=== PATIENT | male | born 1985 | race Caucasian/White ===

== ENCOUNTER 2024-11-10 04:52 | Emergency (ER) | payer OTHER, SELFPAY ==
[2024-11-10 05:02] VITALS: BP 139/87; PULSE 68; TEMP 36.7; O2SAT 98; BMI 25.1
--- NOTE | 2024-11-10 05:16 | ED.LOWEXI1 ---
HPI HPI - Extremity Injury (Lower) General Chief Complaint: Extremity Injury, Lower Stated Complaint: LOWER EXTREMITY PAIN Time Seen by Provider: 11/10/24 05:11 Source: patient Mode of arrival: walk-in Limitations: no limitations History of Present Illness HPI Narrative: pain of right foot for past 5 days. had to catch himself coming down off a ladder and injured the foot. Mild discomfort initially. Next day pain at the instep of the foot and he was walking on the ball of the foot. Is suppose to return to work today but continues to have pain and came to the ER. Denies other injury. no numbness or weakness of the foot. no fever or chills Related Data Home Medications ?Medication ?Instructions ?Recorded ?Confirmed No Known Home Medications 11/10/24 11/10/24 Allergies Allergy/AdvReac Type Severity Reaction Status Date / Time No Known Drug Allergies Allergy Verified 11/10/24 05:01 Opioid HPI Opioid Management Most Recent Pain and Opioid Data: Last Pain Scale 7 11/10/24, 05:02 Review of Systems ROS Status of ROS 10 or more systems reviewed and unremarkable except as noted in history and below PFSH PFSH Social History Little interest or pleasure in doing things: not at all Feeling down, depressed, or hopeless: not at all Exam Constitutional Vital Signs, click to edit/add: Last Vital Signs Temp 98.1 F 11/10/24 05:02 Pulse 68 11/10/24 05:02 Resp 18 11/10/24 05:02 BP 139/87 11/10/24 05:02 Pulse Ox 98 11/10/24 05:02 O2 Del Method Room Air 11/10/24 05:02 Common normals: no apparent distress, average body habitus, oriented x3, no limitations, healthy appearing, alert and well nourished [facility] Common normals: normocephalic and head/scalp atraumatic Eye Common normals: EOMs intact bilaterally Respiratory Common normals: normal respiratory effort, no retractions, no use of accessory muscles and clear to auscultation bilaterally Cardio Common normals: regular rate, regular rhythm, S1 normal heart sound and S2 normal heart sound Extremity Other: normal inspection right foot . focal tenderness instep right foot. No fullness or obvious swelling Neuro Common normals: oriented x3, CN's II-XII intact bilaterally and moves all extremities Psych Appearance: grossly normal Course Vital Signs Vital signs: Vital Signs Temperature 98.1 F 11/10/24 05:02 Pulse Rate 68 11/10/24 05:02 Respiratory Rate 18 11/10/24 05:02 Blood Pressure 139/87 11/10/24 05:02 Pulse Oximetry 98 11/10/24 05:02 Oxygen Delivery Method Room Air 11/10/24 05:02 Temperature 98.1 F 11/10/24 05:02 Pulse Rate 68 11/10/24 05:02 Respiratory Rate 18 11/10/24 05:02 Blood Pressure 139/87 11/10/24 05:02 Pulse Oximetry 98 11/10/24 05:02 Oxygen Delivery Method Room Air 11/10/24 05:02 MDM - Extremity Injury (Lower) MDM Narrative Medical decision making narrative: presents with right foot pain ongoing for past 4-5 days. tender instep. no swelling . xray neg. Patient strained his foot based on the history he provided. Will have him follow up with podiatry Discharge Plan Discharge Chief Complaint: Extremity Injury, Lower Clinical Impression: Right foot strain Patient Disposition: Home, Self-Care Prescriptions / Home Meds: No Action No Known Home Medications Print Language: Romansh Instructions: Arthralgia (ED) Additional Instructions: follow up with podiatry Referrals: Physician,Non-Staff, MD [Primary Care Provider] - 1 week Discharge Date/Time: 11/10/24 06:49
== END 2024-11-10 06:49 | disposition home or self-care (01) ==
PROVIDERS: Emergency Provider Internal Medicine
DX: S96.811A Strain of other specified muscles and tendons at ankle and foot level, right foot, initial encounter (principal); M79.671 Pain in right foot; M77.31 Calcaneal spur, right foot
CPT/HCPCS: 73630; 99283

== ENCOUNTER 2024-12-30 10:00 | Emergency (ER) | payer OTHER, SELFPAY ==
[2024-12-30 10:06] VITALS: BP 135/99; PULSE 68; TEMP 37.1; O2SAT 100; BMI 23.7
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
--- NOTE | 2024-12-30 10:34 | ED.ABDPAIN1 ---
HPI - Abdominal Pain General Chief Complaint: Abdominal Pain Stated Complaint: ABDOMINAL PAIN, CONSTIPATION, Time Seen by Provider: 12/30/24 10:33 Source: patient Mode of arrival: walk-in Limitations: no limitations History of Present Illness HPI narrative: The patient comes to the ER after he missed work yesterday because he was having constipation and started having diarrhea today after taking laxative, patient have no abdominal pain no nausea no vomiting He mentioned that he has been managing constipation for the last few years and he denies any alarming symptoms or any abdominal pain nausea vomiting at any time but he had to take laxative every few days to help him go to the bathroom better The patient have no acute complaints Related Data Home Medications ?Medication ?Instructions ?Recorded ?Confirmed No Known Home Medications 11/10/24 12/30/24 Allergies Allergy/AdvReac Type Severity Reaction Status Date / Time No Known Drug Allergies Allergy Verified 12/30/24 10:06 Review of Systems ROS Status of ROS 10 or more systems reviewed and unremarkable except as noted in history and below PFSH PFSH Social History Little interest or pleasure in doing things: not at all Feeling down, depressed, or hopeless: not at all Exam Narrative Exam Narrative: Nurses notes and vital signs reviewed and patient is not hypoxic. General: Well-appearing and in no apparent distress. Skin: Warm, dry, no pallor noted. No rash. Head: Normocephalic, atraumatic. Neck: Supple, non-tender. Cardiovascular: Regular Rate and Rhythm without murmur, gallop or rub. Respiratory: No accessory muscle use or respiratory distress. Lungs are clear to auscultation, no wheezing, rales or rhonchi GI: Abdomen is soft, non-distended. Normal bowel sounds. No masses appreciated. No tenderness to palpation. No rebound, guarding, or rigidity noted. Neurological: A&O x4. No cranial nerve dysfunction observed. No truncal ataxia. Moves all extremities. Sensation intact. Psychiatric: Cooperative and interactive. Normal mood and affect. Constitutional Vital Signs, click to edit/add: Last Vital Signs Temp 98.8 F 12/30/24 10:06 Pulse 68 12/30/24 10:06 Resp 17 12/30/24 10:06 BP 135/99 H 12/30/24 10:06 Pulse Ox 100 12/30/24 10:06 O2 Del Method Room Air 12/30/24 10:06 Course Vital Signs Vital signs: Vital Signs Temperature 98.8 F 12/30/24 10:06 Pulse Rate 68 12/30/24 10:06 Respiratory Rate 17 12/30/24 10:06 Blood Pressure 135/99 H 12/30/24 10:06 Pulse Oximetry 100 12/30/24 10:06 Oxygen Delivery Method Room Air 12/30/24 10:06 Temperature 98.8 F 12/30/24 10:06 Pulse Rate 68 12/30/24 10:06 Respiratory Rate 17 12/30/24 10:06 Blood Pressure 135/99 H 12/30/24 10:06 Pulse Oximetry 100 12/30/24 10:06 Oxygen Delivery Method Room Air 12/30/24 10:06 MDM - Abdominal Pain MDM Narrative Medical decision making narrative: The patient has no acute pathology at the moment except for the constipation that is getting better with the laxative use Patient referred to see the primary care as outpatient The patient also to come back to us in case of any new complaint and he was provided a work excuse for today and yesterday The patient is to follow up with primary care physician in next 2-3 days or to return to the emergency department should any of the signs or symptoms worsen or new symptoms develop. The patient agrees with the following Diagnosis and Treatment plan and the patient will be discharged home. Discharge Plan Discharge Chief Complaint: Abdominal Pain Clinical Impression: Gastroenteritis Patient Disposition: Home, Self-Care Time of Disposition Decision: 10:45 Condition: Good Mode of Transportation: Private Vehicle Prescriptions / Home Meds: No Action No Known Home Medications Print Language: Swiss Instructions: Constipation (DC) Referrals: Physician,Non-Staff, MD [Primary Care Provider] - 1 week Discharge Date/Time: 12/30/24 10:53
== END 2024-12-30 10:53 | disposition home or self-care (01) ==
PROVIDERS: Emergency Provider Emergency Medicine
DX: K52.9 Noninfective gastroenteritis and colitis, unspecified (principal); K59.00 Constipation, unspecified
CPT/HCPCS: 99281

== ENCOUNTER 2025-01-06 09:14 | Outpatient (OUT) | payer BC, OTHER, SELFPAY ==
--- OUTSIDE RECORDS SUMMARY | 2025-01-05 05:15 | XMS_ITS ---
Author Organization [facility] in [place] Address [address] [place] [address] Care Team Providers Care Receiving Associate Store Name Role Phone Lorenzo Saini Primary Care Provider Allergies No Known Allergies Reason For Referral Reason Screenign colonoscop Diagnosis 1 Well adult (Z00.00) Referral Organization [facility] Referring Provider First Name Lorenzo Referring Provider Last Name Parveen Referring Provider Speciality Family Med adilia Referred Provider Mehul Trent Referred Provider Specialty General Surg neftali Referral Priority Routine REASON FOR VISIT 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 Yes V APE Tobacco Control (Standard) Question Answer Notes Tobacco use: Current smoker AUDIT-C (Standard) Question Answer Notes Did you have a drink containing alcohol in the p ast year? No Points 0 Interpretation Negative Problems Problem Type SNOMED Code ICD Code Onset Dates Problem Status W/U Status Risk Notes Problem Constipation (22986143) Constipation (K59.00) Active confirmed Problem Blood in feces (125924295) Blood in feces (K92.1) Active confirmed Vital Signs Weight 163.2 lbs 01/05/2025 Height 70 in 01/05/2025 Blood pressure systolic 122 mm Hg 01/06/20 25 Blood pressure diastolic 88 mm Hg 025 BMI 23.41 kg/m2 01/05/2025 Encounters Encounter Location Date Provider Diagnosis [facility] [address] [place] [address] 01/05/2025 Lorenzo Saini Constipation K59.00 ; Blood in feces K92.1 and Well adult Z00.00 Assessments Encounter Date Diagnosis (ICD Code) Assessment Notes Treatment Notes Treatment Clinical Notes Section Notes 01/05/2025 Constipation (ICD-10 - K59.00) 01/05/2025 Blood in feces (ICD-10 - K92.1) 01/05/2025 Well adult (ICD-10 - Z00.00) Plan Of Treatment Pending Test Test Name Order Date HEMOGLOBIN A1C (GLYCO) 01/05/2025 LIPID PANEL (CHOL/TRIG/HDL/LDL) 01/06/20 25 THYROID PANEL (T4/TSH/FREE T3) PSA, SCREENING 01/05/2025 CMP (COMP [place]) w/eGFR CKD-EPI 2024 CBC WITH DIFF 01/05/2025 Referrals Referral Date Details 01/05/2025 01/05/2025, [place] n colonoscop, Mehul Trent Progress Notes * SEVERIANOArlethAlejandroOB:1985 (39 yo M)Acc No.[id number]:01/05/2025 UNLOCKED PROGRESS NOTE Progress Note Patient: Franc KILPATRICK Provider: Amrik Saini ([facility])MD :1985 A ge:39 Y S ex:Male Date:01/05/2025 Address:[address] [place] [address] [place], [place] [id number] Check In:08:58 AM ESTCheck O ut:10:00 AM EST Subjective: * Chief Complaints: * 1 . GRID CASTER- No meds-ESTABLISH- prev saw Dr Atwood 10 years ago. 2. Hard/soft bowels, blood, mucus at times. * HPI: D epression Screening: PHQ-2 (2015 Edition) L ittle interest or pleasure in doing things??Not at all F eeling down, depressed, or hopeless? N ot at all T otal Score 0 Times blood with bm almost every timeh had stool s - some No Fh colon cancer herneia repati in the past. * ROS: E ENT: hearing changes d enies. v isual changes d enies.?non-healing mouth sores d enies. s wollen glands or neck lumps d enies. h oarseness d enies. s ore throat d enies. d ifficulty swallowing d enies. n ose bleeds d enies. n rupali congestion d enies. e ar ache d enies. e ar discharge?denies. r inging in ears d enies. l ight sensitivity d enies. e ye pain d enies. b lurring d enies. e ye irritation d enies. d ouble vision d enies.?vision loss d enies. G eneral/Constitutional: Sweats: D enies. F atigue d enies. S leep problems d enies. A norexia d enies. M alaise d enies. W eight loss d enies.?Fatigue or Weakness d enies. F ever or Chills d enies. C ardiovascular: Shortness of Breath w/lying flat d enies. L ightheadedness/dizziness d enies. C hest tightness/ heavy pressure d enies. S welling of legs, ankles, or feet d enies. W aking up with shortness of breath d enies. C hest pain denies. P alpitations d enies. W eight gain d enies. R espiratory: Chronic or frequent cough d enies. C oughing up blood?denies. D ifficulty breathing d enies. P roductive cough d enies. S noring?denies. S hortness of breath that awakens from sleep (PND) d enies. C hest pain d enies. S putum production d enies. W heezing d enies. M usculoskeletal: Joint pain d enies. J oint Fluid d enies. B ack pain d enies. K nee pain d enies. N coni pain d enies. J oint Stiffness d enies. M uscle cramps d enies. W eakness of muscles d enies. A rthritis d enies. M uscle aches d enies. P ain in shoulder(s) d enies. S wollen joints d enies. * Medical History: M edical History Verified. * Surgical History: H ernia with mesh x2 . * Hospitalization/Major Diagno stic Procedure: D enies Past Hospitalization. * Family History: F ather: . M other: alive, diagnosed with Cancer, Heart Disease. * Social History: T obacco Use: T obacco Control (Standard) T obacco use: C urrent smoker Tobacco use other than smoking A re you an other tobacco user? Y es VAPE D rug/Alcohol: A TONNY-C (Standard) D id you have a drink containing alcohol in the past year? N o P oints 0 I nterpretation N egative * Medications: N one * Allergies: N .K.D.A. Objective: * Vitals: W t:163.2lbs, Ht: 70 in, BP:122/88mm Hg, BMI:23.41Index, Ht-cm: 177.8 cm, Wt-k.03 kg. * Examination: P hysical Exam: GENERAL: w ell developed, well nourished, in no acute distress. HEAD: n ormocephalic/atraumatic. EYES: p upils equal, round and reactive to light, conjunctivae and sclerae normal. EARS: n o deformity or lesion of external ear, canals and TM appear normal bilaterally, TM's intact, not inflamed with normal light reflex, hearing grossly normal to conversational speech. NOSE: n o deformity, discharge, inflammation, or lesions.? MOUTH: m ucous membranes moist, normal oropharynx and posterior pharynx without lesions or exudates, tongue normal, dentition normal. NECK: n coni supple, no masses or palpable cervical nodes, trachea midline, thyroid without nodules, masses, tenderness, or enlargement. CHEST: n o chest wall deformity, no chest wall tenderness.? LUNGS: n ormal respiratory effort and clear to auscultation, no wheezes, rales, or rhonchi, good air exchange. CARDIO: r egular rate and rhythm, normal S1 and S2, nor murmur, rub, or gallop. PULSES: n ormal capillary refill. ABDOMEN: s oft, non-distended, non-tender, no masses. MUSCULOSKELETAL: n o deformity or scoliosis noted, normal range of motion, joints normal, no erythema, edema, effusion, or ecchymosis. EXTREMITY: n o clubbing, cyanosis, edema, or deformity with normal ROM in both upper and lower bilateral extremities. NEUROLOGIC: g rossly normal. SKIN: n o rashes, ulcerations, or suspicious lesions. LYMPH NODES: n o cervical adenopathy, nodes normal. MENTAL STATUS: a lert and oriented x3, normal mood and affect. Assessment: * Assessment: 1. C onstipation - K59.00 (Primary) 2 . B lood in feces - K92.1 ?3. W ell adult - Z00.00 Plan: * Treatment: * Procedure Codes: 3 079F DIAST BP 80-89 MM HG, 3074F SYST BP LT 130 MM HG * * Electronic signature of Lorenzo Saini MD, [id number] on 01/06/2025 at 09:19 AM EDT Sign off status: Pending Visit Status: J Carlos HK (Check Out) * Provider: Amrik Saini ([facility])MD Date: 1 Generated for Printi ng/Fapaug/eTransmitting on: 09:19 AM EDT History and Physical Notes * HPI (History of Present Illness) Category Sub-Category Detail Notes Category Not es Depression Screening PHQ-2 (2015 Edition) Little interest or pleasure in doing things?: Not at all Times blood with bm almost every timeh had stool s - some No Fh colon cancer herneia repati in the past Feeling down, depressed, or hopeless?: N ot at all Total Score: 0 Examination Category Sub-Category Detail Notes Category Not es Physical Exam GENERAL: well developed, well nourished, in no acute distress HEAD: normocephalic/atraum atic EYES: pupils equal, round and reactive to light, conjunctivae and sclerae normal EARS: no deformity or lesi on of external ear, canals and TM appear normal bilaterally, TM's intact, not inflamed with normal light reflex, hearing grossly normal to conversational speech NOSE: no deformity, discha rge, inflammation, or lesions MOUTH: mucous membranes will st, normal oropharynx and posterior pharynx without lesions or exudates, tongue normal, dentition normal NECK: neck supple, no mass es or palpable cervical nodes, trachea midline, thyroid without nodules, masses, tenderness, or enlargement CHEST: no chest wall deform ity, no chest wall tenderness LUNGS: normal respiratory e ffort and clear to auscultation, no wheezes, rales, or rhonchi, good air exchange CARDIO: regular rate and rhy thm, normal S1 and S2, nor murmur, rub, or gallop PULSES: normal capillary ref ill ABDOMEN: soft, non-distended, non-tender, no masses RECTAL: MUSCULOSKELETAL: no deformity or scol iosis noted, normal range of motion, joints normal, no erythema, edema, effusion, or ecchymosis EXTREMITY: no clubbing, cyanosi s, edema, or deformity with normal ROM in both upper and lower bilateral extremities NEUROLOGIC: grossly normal SKIN: no rashes, ulceratio ns, or suspicious lesions LYMPH NODES: no cervical adenopat hy, nodes normal MENTAL STATUS: alert and oriented x 3, normal mood and affect Consultation Request Notes Referral Date Referring Provider Referred Provider Not es 01/05/2025 Lorenzo Saini Michael Screenign colo noscop
--- OUTSIDE RECORDS SUMMARY | 2025-01-06 09:19 | XMS_ITS | Patient Health Record ---
Author Organization [facility] in [place] Address [address] [place] [address] Care Team Providers Care Roofing Layer Name Role Phone Lorenzo Saini Primary Care Provider Allergies No Known Allergies Reason For Referral Reason Screenign colonoscop Diagnosis 1 Well adult (Z00.00) Referral Organization [facility] Referring Provider First Name Lorenzo Referring Provider Last Name Parveen Referring Provider Speciality Family Med adilia Referred Provider Mehul Trent Referred Provider Specialty General Surg neftali Referral Priority Routine Social History Tobacco Use: Social History Observation [...] Status W/U Status Risk Notes Problem Constipation (09574030) Constipation (K59.00) Active confirmed Problem Blood in feces (382116613) Blood in feces (K92.1) Active confirmed Vital Signs Blood pressure diastolic 88 mm Hg 01/05/2025 Height 70 in 01/05/2025 Blood pressure systolic 122 mm Hg 01/05/2025 Weight 163.2 lbs 01/05/2025 BMI 23.41 kg/m2 01/05/2025 Encounters Encounter Location Date Provider Diagnosis [facility] [address] [place] [address] 01/05/2025 Lorenzo Saini Constipation K59.00 ; Blood [...] w/eGFR CKD-EPI 2024 CBC WITH DIFF 01/05/2025 Insurance Providers Payer Name Payer Address Payer Phone Subscriber Number Group Number Insured Name Patient Relationship to Insured Coverage Start Date Coverage End Date LILLIE KRUSE [address] [place] [address] [id number] Franc العلي Self - patient is the insured Medical (General) History Surgical History Surgery Date(Month/Year) Hernia with mesh x2
--- OUTSIDE RECORDS SUMMARY | 2025-01-06 09:20 | XMS_ITS | Clinical Summary ---
Author Organization [employer] Address [id number] [address] [place] [address] Care Team Providers Care Product Promoter Sales Person Name Role Phone Gisselle Atwood MD Primary Care Provider [phone] Allergies No known active allergies Medications bacitracin [...] Friends and Family Patient declined 08/24/2018 Attends [employer] Services Patient declined 07/29 Active Member of [...] Paying Living Expenses Very hard 08/24/2018 [facility] of Occupat ional Health - Occupational Stress [...] family Medical Devices Not on file Insurance [employer] Advance Directives * Full Code (Latest Code Status on File) Date Activated Date Inactivated Comments 08/19/2018 6:14 AM 08/20/2018 8:58 PM Care Teams Product Promoter Sales Person Relationship Specialty Start Date End Date Gisselle Atwood MD PCP - General Family Medicine 08/21/21
[2025-01-06 11:25] LABS: Hematocrit 46.7 % (42.0-54.0); Hemoglobin 15.6 g/dL (14.0-18.0); Immature Granulocytes Abs Auto 0.02 10^3/uL (0.00-0.03); Immature Granulocytes Pct Auto 0.3 % (0.0-0.5); Lymphocytes Absolute Auto 1.4 10^3/uL (1.2-3.8); Mean Corpuscular HGB Conc 33.4 g/dL (29.9-35.2); Mean Corpuscular Hemoglobin 30.8 pg (25.9-34.0); Mean Corpuscular Volume 92.1 fL (80.0-94.0); Platelet Count 240 10^3/uL (150-450); Red Blood Count 5.07 10^6/uL (4.70-6.10); White Blood Count 5.9 10^3/uL (4.0-11.0)
[2025-01-06 15:57] LABS: Alanine Aminotransferase 25 U/L (16-63); Albumin Globulin Ratio 0.9; Albumin Level 3.6 g/dL (3.4-5.0); Alkaline Phosphatase 69 U/L (46-116); Anion Gap 11.7; Aspartate Amino Transferase 19 U/L (15-37); Blood Urea Nitrogen 13.0 mg/dL (7.0-18.0); Calcium 8.8 mg/dL (8.5-10.1); Carbon Dioxide 28.0 mmol/L (21.0-32.0); Chloride 105 mmol/L (98-107); Cholesterol 152 mg/dL (<=200); Estimated GFR (African America >60 (>=60 mL/min/1.73m^2); Estimated GFR (Non-African Ame >60 (>=60 mL/min/1.73m^2); Free T3 2.76 pg/mL (2.18-3.98); Globulin 4.1 g/dL; Glucose 85 mg/dL (74-106); HDL Cholesterol 51 mg/dL (40-60); Potassium 4.7 mmol/L (3.5-5.1); Sodium 140 mmol/L (136-145); Thyroid Stimulating Hormone 0.878 uIU/mL (0.358-3.740); Total Protein 7.7 g/dL (6.4-8.2); Triglycerides 39 mg/dL (<=150); VLDL CHOLESTEROL 7.8 mg/dL
== END 2025-01-06 09:15 | disposition home or self-care (01) ==
LOC: LAB 09:17
PROVIDERS: PCP Family Medicine; Visit Provider Family Medicine
DX: Z00.00 Encounter for general adult medical examination without abnormal findings (principal); R73.09 Other abnormal glucose; R53.83 Other fatigue; Z12.5 Encounter for screening for malignant neoplasm of prostate
CPT/HCPCS: 36415; 80053; 80061; 83036; 84436; 84443; 84481; 85025; G0103

== ENCOUNTER 2025-02-10 10:17 | Outpatient (OUT) | payer OTHER, SELFPAY ==
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
== END 2025-02-10 10:18 | disposition home or self-care (01) ==
LOC: PST 10:17
PROVIDERS: PCP Family Medicine; Visit Provider Surgery
DX: Z01.818 Encounter for other preprocedural examination (principal); K59.00 Constipation, unspecified; K92.1 Melena

== ENCOUNTER 2025-02-15 07:07 | Day surgery (SDC) | payer OTHER, SELFPAY ==
--- NOTE | 2025-02-15 | OP_ITS ---
OPERATION DATE: 02/15/2025 PREOPERATIVE DIAGNOSIS: Rectal bleeding, change in bowel habits with loose stools, hematochezia, mucus in the stools. POSTOPERATIVE DIAGNOSIS: Rectal ulceration as well as distal rectal inflammation. PROCEDURE: Colonoscopy to cecum with biopsy of the rectal ulceration, rectal inflammation. SURGEON: Mehul Trent M.D. ANESTHESIA: Monitored anesthesia care. ESTIMATED BLOOD LOSS: Less than 1 mL. INDICATIONS AND CONSENT: Patient is a 39-year-old male, with history of intermittent rectal bleeding, loose stools, mucousy stools, hematochezia. Indications, risks, benefits, alternatives of proceeding with colonoscopy were explained extensively to the patient, including the risks of bleeding, colon perforation or anesthetic complications. All of his questions were answered. Informed consent was obtained. PROCEDURE: Patient brought to the operating room, placed in the left lateral decubitus position. Monitored anesthesia care was provided. Rectal exam was performed which showed no masses or blood. The scope was inserted into the anal canal. Under direct visualization was advanced. With the aid of abdominal compression, it was advanced to the cecum where cecal markings were clearly identified. Upon withdrawal of the scope, mucosal surfaces were carefully examined. There were no mass lesions or polyps. There was a redundant colon. No significant diverticulosis. Within the upper rectum, there was noted to be an ulcerated area that was oblong, approximately 7 mm, with no bleeding or raised border. Biopsies were obtained with good hemostasis. Within the distal rectum, there was noted to be inflammation and nodularity that was biopsied as well, in multiple biopsies, with good hemostasis. The scope was retroflexed in the anal canal. There was no significant hemorrhoidal disease. The scope was then withdrawn. Patient tolerated procedure well, was sent to recovery room in good condition. Follow up colonoscopy will depend on biopsy results. CC: Ethan Saini M.D. EDDI
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
--- OUTSIDE RECORDS SUMMARY | 2025-02-15 07:12 | XMS_ITS | Patient Health Record ---
Author Organization [facility] [place] Address [address] [place] [address] Care Team Providers Care Ladle Mechanic Name Role Phone ParveenLorenzo Primary Care Provider Allergies No Known Allergies Results Component Value Reference Range Notes CBC AUTO DIFF Reviewed date:01/06/2025 11:49:43 AM Interpretation: Performing Lab: Notes/Report: [facility] , White Blood Count 5.9 4.0-11.0 10 3/uL Red Blood Count5.074.70-6.10 10 6/rMWtkqdwrubv97.614.0-18.0 g/hDPvlshfdthk31.7 42.0-54.0 %Mean Corpuscular Jujmpd33.180.0-94.0 fLMean Corpuscular Hemoglobin 30.825.9-34.0 pgMean Corpuscular HGB Conc33.429.9-35.2 g/dLRed Cell Distribution Width12.411.0-15.0 %Platelet Fphqd381167-896 10 3/uLMean Platelet Jqxdza66.19.5- 13.5 fLNeutrophils Percent Auto61.343.0-75.0 %Lymphocytes Percent Auto23.920.5- 60.0 %Monocytes Percent Auto12.01.7-12.0 %Eosinophils Percent Auto2.20.9-7.0 % Basophils Percent Auto0.30.2-2.0 %Immature Granulocytes Pct Auto0.30.0-0.5 % Neutrophils Absolute Auto3.61.4-6.5 10 3/uLLymphocytes Absolute Auto1.41.2-3.8 10 3/uLMonocytes Absolute Auto0.70.3-0.8 10 3/uLEosinophils Absolute Auto0.10.0- 0.7 10 3/uLBasophils Absolute Auto0.00.0-0.1 10 3/uLImmature Granulocytes Abs Auto0.020.00-0.03 10 3/uLPerforming Lab:see noteML - [facility] GLYCOHEMOGLOBIN A1C Reviewed date:01/07/2025 12:19:08 PM Interpretation: Performing Lab: Notes/Report: [facility] ,Glycohemoglobin A1C5.64.5-6.2 % ACTION SUGGESTED ADA THERAPEUTIC TARGET < 7.0 > 7.0 ADA RECOMMENDED LIMIT 4.0 - 6.0 Estimated Average Xetnnec960Rkcvvvheye Lab:see note - [facility] TSH Reviewed date:01/07/2025 12:19:08 PM Interpretation: Performing Lab: Notes/Report: [facility] ,Thyroid Stimulating Hormone0.8780.358-3.740 uIU/mLPerforming Lab:see note - [facility] LBT4 Reviewed date:01/07/2025 12:19:08 PM Interpretation: Performing Lab: Notes/Report: [facility] ,T4 Thyroxine6.104.50-12.10 ug/dLPerforming Lab:[facility] LBPROF 14(COMP METB) Reviewed date:01/07/2025 12:19:08 PM Interpretation: Performing Lab: Notes/Report: [facility] ,Pewini750958-313 mmol/LPotassium4.73.5-5.1 mmol/IRowodrqo89875-079 mmol/LCarbon Qkldvfj69.021.0-32.0 mmol/LAnion Gap11.1Qhubokj2625-405 mg/dLBlood Urea Nitrogen 13.07.0-18.0 mg/dLCreatinine1.050.70-1.30 mg/dLEstimated GFR ( Marquita>60 >=60 mL/min/1.73m 2Estimated GFR (Non- Tabatha>60>=60 mL/min/1.73m 2BUN Creatinine Ratio12.9Dpavhpp4.88.5-10.1 mg/dLBilirubin Total0.90.2-1.0 mg/dL Aspartate Amino Stwbricytul7601-52 U/LAlanine Bbgwupuoksfmmtmu0846-33 U/L Alkaline Gxzvuitwzpq5484-101 U/LTotal Protein7.76.4-8.2 g/dLAlbumin Level3.63.4- 5.0 g/dLGlobulin4.1Albumin Globulin Ratio0.9Performing Lab:see noteML - [facility] LBLIPID PROFILE Reviewed date:01/07/2025 12:19:08 PM Interpretation: Performing Lab: Notes/Report: [facility] ,Gtktqpbxtxjqh21<=150 mg/oWNsslihxgjao779<=200 mg/dLHDL Adbhhqqwyny0607-97 mg/dL > or =60 mg/dl - LOW CARDIOVASCULAR RISK <40 mg/dl - HIGH CARDIOVASCULAR RISK LDL Cholesterol Ncvnzmmhgs93.2 >190 mg/dl VERY HIGH 100-129 mg/dl NEAR OR ABOVE OPTIMAL 160-189 mg/dl HIGH <100 mg/dl OPTIMAL 130-159 mg/dl BORDERLINE HIGH VLDL CHOLESTEROL7.8Chol HDL Ratio3.0 7.1 - 11.0 MODERATE RISK 4.4 - 7.1 AVERAGE RISK 3.3 - 4.4 LOW RISK >11.0 HIGH RISK Performing Lab:see noteML - [facility] LBFREE T3 Reviewed date:01/07/2025 12:19:08 PM Interpretation: Performing Lab: Notes/Report: [facility] ,Free T32.762.18-3.98 pg/mLPerforming Lab:see noteML - [facility] PSA SCREENING Reviewed date:01/07/2025 12:19:08 PM Interpretation: Performing Lab: Notes/Report: [facility] ,Prostate Specific Antigen Scrn0.94<=4.00 ng/mLPerforming Lab:see noteML - [facility] Reason For Referral Reason Screenign colonoscop Diagnosis 1 Well adult (Z00.00) Referral Organization [facility] Referring Provider First Name Lorenzo Referring Provider [...] alcohol in the p ast year? No Soupqb4SzwqdmkkdtypoyFwwvtqgs Problems Problem Type SNOMED Code ICD Code Onset Dates Problem Status W/U Status Risk Notes Problem Constipation (80641933) Constipation (K59 .00) ActiveconfirmedProblemBlood in feces (999322319)Blood in feces (K92.1)Active confirmed Vital Signs Blood pressure diastolic 88 mm Hg 01/05/2025 Vcyyjh01 in01/05/2025lood pressure sgpfyrsq646 mm Hg01/05/20251973Qcrksb548.2 lbs 01/05/2025BMI23.41 kg/m201/05/2025 Encounters Encounter Location Date Provider Diagnosis [facility] [address] [place] [address] 01/07/2025 Lorenzo Hoy [facility] [place] [address] 01/05/2025Doug HoyConstipation K59.00 ; Blood in feces K92.1 and Well adult Z00.00 Assessments Encounter Date Diagnosis (ICD Code) Assessment Notes Treatment Notes Treatment Clinical Notes Section Notes 01/05/2025 Constipation (ICD-10 - K59.00) 01/05/2025lood in feces (ICD-10 - K92.1)01/05/2025Well adult (ICD-10 - Z00.00) Plan Of Treatment [...] Coverage End Date LILLIE KRUSE [address] [place] [address] [id number] Patel العليelf - patient is the insured Medical (General) History Surgical History Surgery Date(Month/Year) Hernia with mesh x2
[2025-02-15 07:15] VITALS: BP 126/75; PULSE 66; TEMP 36.3; O2SAT 96; BMI 23.8
[2025-02-15 09:11] VITALS: BP 100/59; PULSE 59; TEMP 36.4; O2SAT 99
[2025-02-15 09:26] VITALS: BP 99/63; PULSE 52; O2SAT 100
[2025-02-15 09:41] VITALS: BP 109/73; PULSE 54; O2SAT 100
[2025-02-15 09:47] VITALS: BP 116/82; PULSE 58; O2SAT 100
--- NOTE | 2025-02-15 09:48 | PC.NURSE ---
went over discharge instructions with patient and /girlfriend verbalized understanding
== END 2025-02-15 09:47 | disposition home or self-care (01) ==
LOC: SURGOUT 07:09
PROVIDERS: PCP Family Medicine; Visit Provider Surgery
PROC: (CPT 811; principal; 2025-02-15 08:20)
DX: K62.6 Ulcer of anus and rectum (principal); K92.1 Melena; K59.00 Constipation, unspecified; F17.290 Nicotine dependence, other tobacco product, uncomplicated
CPT/HCPCS: 45380; 88305; J2003; J2371; J2704